=== PATIENT | female | born 1965 | race Caucasian/White ===

== ENCOUNTER 2019-02-16 07:45 | Emergency (ER) | payer OTHER ==
[2019-02-16] MEDS ORDERED: NS 1,000 ML IV ONE (08:05)
--- NOTE | 2019-02-16 08:22 | EDPHY ---
H & P Stated Complaint: dizziness, h/a, fatigue x ~2 weeks with "reflux" symptoms Time Seen by Provider: 02/16/19 08:03 HPI/ROS: CHIEF COMPLAINT: Concerned about heart issues HISTORY OF PRESENT ILLNESS: The patient presents the emergency department because she is concerned about the health of her heart. She has had several weeks of fairly vague symptoms including fatigue, months of acid reflux and excessive sleepiness. The patient reports that her father had heart attack in his 40s. The patient denies symptoms of exertional chest pain or shortness of breath. She denies any pleuritic chest pain. She denies asymmetric calf pain or swelling. She does have a history of hypertension hyperlipidemia. She has not been taking any medications for acid reflux. The patient did see apricot packer approximately 4 years ago for screening. At that point time she had a negative echocardiogram a treadmill stress test. The patient denies any infectious symptoms of fever or cough. She has had some loose stool over the past several days. REVIEW OF SYSTEMS: A comprehensive 10 point review of systems is otherwise negative aside from elements mentioned in the history of present illness. Source: Patient Exam Limitations: No limitations - Personal History LMP (Females 10-55): Irregular Current Tetanus/Diphtheria Vaccine: Unsure Current Tetanus Diphtheria and Acellular Pertussis (TDAP): Unsure - Medical/Surgical History Hx Asthma: No Hx Chronic Respiratory Disease: No Hx Diabetes: No Hx Cardiac Disease: No Hx Renal Disease: No Hx Cirrhosis: No Hx Alcoholism: No Hx HIV/AIDS: No Hx Splenectomy or Spleen Trauma: No Other PMH: htn, hyperlipidemia - Social History Smoking Status: Never smoked - Physical Exam Exam: General Appearance: Alert, no distress Eyes: Pupils equal and round no pallor or injection ENT, Mouth: Mucous membranes moist Respiratory: There are no retractions, lungs are clear to auscultation Cardiovascular: Regular rate and rhythm Gastrointestinal: Abdomen is soft and nontender, no masses, bowel sounds normal Neurological: A&O, normal motor function, normal sensory exam, normal cranial nerves Skin: Warm and dry, no rashes Musculoskeletal: Neck is supple nontender Extremities: symmetrical, full range of motion Constitutional: Initial Vital Signs Temperature (C) 36.6 C 02/16/19 07:49 Heart Rate 77 02/16/19 07:49 Respiratory Rate 16 02/16/19 07:49 Blood Pressure 154/90 H 02/16/19 07:49 O2 Sat (%) 97 02/16/19 07:49 O2 Delivery Mode Room Air Allergies/Adverse Reactions: No Known Allergies Allergy (Unverified 02/16/19 07:53) Home Medications: Medication Instructions Recorded Atorvastatin Calcium 02/16/19 Effexor Xr 02/16/19 SIMVASTATIN 02/16/19 Medical Decision Making - Diagnostics EKG Interpretation: EKG: Complete interpretation has been separately recorded in the [facility] archive. Summary impression: Sinus rhythm, rate 61, no ischemic changes noted ED Course/Re-evaluation: The patient presents the ED out of concerns secondary to possible acute coronary syndrome. She certainly has had atypical symptoms. While she does have some risk factors for cardiac disease her workup here is unremarkable. Her primary symptom has been 1 of acid reflux which is typically described. She has not been taking any [id number] antacid medications. In the ER the patient's troponin and EKG are normal. Additional workup includes a normal CBC, serum chemistries, liver function test and lipase. At this point time I have told the patient objectively I find no evidence of heart disease. Her history is not suggestive of it. Given her family history and risk factor she has been given the number of our on-call apricot packer if she with she is to schedule an outpatient appointment. I have asked her to begin taking ranitidine 150 mg twice a day. She is discharged home with customary aftercare instructions and return precautions. Differential Diagnosis: Differential diagnosis considered includes gastroesophageal reflux disease, pericarditis, myocarditis, pancreatitis, hepatitis - Data Points Laboratory Results: Laboratory Results 02/16/19 08:20 02/16/19 08:20 02/16/19 02/16/19 02/16/19 08:26 08:20 08:20 WBC 7.12 10^3/uL 10^3/uL (3.80-9.50) RBC 4.31 10^6/uL 10^6/uL (4.18-5.33) Hgb 12.8 g/dL g/dL (12.6-16.3) Hct 38.1 % % (38.0-47.0) MCV 88.4 fL fL (81.5-99.8) MCH 29.7 pg pg (27.9-34.1) MCHC 33.6 g/dL g/dL (32.4-36.7) RDW 12.8 % % (11.5-15.2) Plt Count 260 10^3/uL 10^3/uL (150-400) MPV 9.4 fL fL (8.7-11.7) Neut % (Auto) 61.6 % % (39.3-74.2) Lymph % (Auto) 28.5 % % (15.0-45.0) [place] % (Auto) 6.0 % % (4.5-13.0) Eos % (Auto) 2.7 % % (0.6-7.6) Baso % (Auto) 1.1 % % (0.3-1.7) Nucleat RBC Rel Count 0.0 % % (0.0-0.2) Absolute Neuts (auto) 4.38 10^3/uL 10^3/uL (1.70-6.50) Absolute Lymphs (auto) 2.03 10^3/uL 10^3/uL (1.00-3.00) Absolute Monos (auto) 0.43 10^3/uL 10^3/uL (0.30-0.80) Absolute Eos (auto) 0.19 10^3/uL 10^3/uL (0.03-0.40) Absolute Basos (auto) 0.08 10^3/uL 10^3/uL (0.02-0.10) Absolute Nucleated RBC 0.00 10^3/uL 10^3/uL (0-0.01) Immature Gran % 0.1 % % (0.0-1.1) Immature Gran # 0.01 10^3/uL 10^3/uL (0.00-0.10) Sodium 138 mEq/L mEq/L (135-145) Potassium 4.0 mEq/L mEq/L (3.5-5.2) Chloride 107 mEq/L mEq/L (97-110) Carbon Dioxide 22 mEq/l mEq/l (22-31) Anion Gap 9 mEq/L mEq/L (6-14) BUN 13 mg/dL mg/dL (7-23) Creatinine 0.6 mg/dL mg/dL (0.6-1.0) Estimated GFR > 60 Glucose 94 mg/dL mg/dL (70-100) Calcium 8.7 mg/dL mg/dL (8.5-10.4) Total Bilirubin 0.9 mg/dL mg/dL (0.1-1.4) Conjugated Bilirubin 0.4 mg/dL mg/dL (0.0-0.5) Unconjugated Bilirubin 0.5 mg/dL mg/dL (0.0-1.1) AST 27 IU/L IU/L (14-46) ALT 35 IU/L IU/L (9-52) Alkaline Phosphatase 56 IU/L IU/L (38-126) POC Troponin I 0.00 ng/mL ng/mL (0.00-0.08) Total Protein 6.3 g/dL g/dL (6.3-8.2) Albumin 4.0 g/dL g/dL (3.5-5.0) Lipase 41 IU/L IU/L (23-300) Medications Given: Discontinued Medications Sodium Chloride (Ns) 1,000 mls @ 0 mls/hr IV EDNOW ONE; Wide Open PRN Reason: Protocol Stop: 02/16/19 08:06 Last Admin: 02/16/19 08:29 Dose: 1,000 mls Point of Care Test Results: Chemistry 02/16/19 08:26 POC Troponin I 0.00 ng/mL ng/mL (0.00-0.08) Departure - Departure Disposition: Home, Routine, Self-Care Clinical Impression: Chest pain Condition: Good Instructions: Chest Pain (ED) Additional Instructions: 1. The testing in the emergency department today is unrevealing. 2. I do recommend beginning Zantac 150 mg twice a day for your symptoms of acid reflux. 3. Please return to the emergency department for markedly worsening symptoms, exertional chest pain or other concerns. 4. You have been given the number of our outpatient apricot packer if you wish to schedule a follow-up visit with them given your risk factors for heart disease. Referrals: Jenn Kyle MD [Primary Care Provider] - As per Instructions Brisa Quinn MD [Medical Doctor] - As per Instructions
--- NOTE | 2019-02-16 08:25 | CPEKG ---
Test Reason : OPEN Blood Pressure : / mmHG Vent. Rate : 061 BPM Atrial Rate : 062 BPM P-R Int : 150 ms QRS Dur : 094 ms QT Int : 424 ms P-R-T Axes : 078 070 054 degrees QTc Int : 427 ms Sinus rhythm Confirmed by Masood Christensen ([id number]) on 02/16/2019 8:24:17 AM Referred By: Masood Christensen Confirmed By:Masood Christensen
[2019-02-16 08:32] LABS: PLATELET COUNT 260 10^3/uL (150-400)
[2019-02-16 09:27] VITALS: BP 152/89
== END 2019-02-16 09:38 | disposition home or self-care (01) ==
DX: R07.9 Chest pain, unspecified (principal); I10 Essential (primary) hypertension; E78.5 Hyperlipidemia, unspecified; E86.9 Volume depletion, unspecified
CPT/HCPCS: 84484-ER